=== PATIENT | male | born 1995 | race Caucasian/White ===

== ENCOUNTER 2017-10-05 21:56 | Emergency (ER) | payer OTHER, SELFPAY ==
[2017-10-05 21:57] VITALS: BP 136/75; PULSE 74; RESP 16; TEMP 36.4; O2SAT 99; BMI 32.3
--- NOTE | 2017-10-05 22:33 | RAD_ITS ---
STUDY: X-RAY - LEFT KNEE REASON FOR EXAM: Male, 21 years old. Twisting injury of the knee. TECHNIQUE: 4 view(s) of the knee. COMPARISON: None. FINDINGS: Normal visualized distal femur. Bone island of the lateral tibia. Otherwise normal tibia and fibula. Normal proximal tibiofibular articulation. Normal patella. Negative for fracture. Normal medial femorotibial compartment. Normal lateral femorotibial compartment. Normal patellofemoral articulation. There is no demonstrated joint effusion. The soft tissue structures are unremarkable. RAD/Knee 4 or More Views IMPRESSION: Normal x-ray examination of the knee. Electronically Signed: Valentina Robert MD at 23:15 EDT , Service support ,
[2017-10-05] MEDS: Naproxen 500 MG Tablet PO (22:40)
--- NOTE | 2017-10-05 23:04 | ED.VISSUMM ---
- ER Visit Summary Date of Service: 10/05/17 Chief Complaint: Left knee pain History of Present Illness: The patient is a [address] Harper. He reports that yesterday he was on a trailer and fell and twisted his left knee awkwardly and hit it on the trailer. He reports he is an aching pain Zeta 10 with walking and 6 out of 10 at rest. He denies any other injuries or complaints. No numbness distally. Physical Examination: Vitals: Stable. Afebrile. Neck: No vertebral tenderness. Full ROM without difficulty. Cleared by NEXUS criteria. Back: No vertebral tenderness. General: A&O x 3. NAD. Cardiovascular exam: Regular rate and rhythm, no murmur, rub or gallop. Respiratory exam: Chest nontender. No crepitus. Clear to auscultation bilaterally. No wheezes or stridor. Abdominal exam: Soft, nontender, nondistended, normal bowel sounds. No pain in RUQ or LUQ specifically. No peritoneal signs. Extremity: Contusion on the medial side of his left knee that is mildly tender to palpation. No pain with range of motion. No pain or ligamentous instability with anterior/posterior drawer or medial/lateral stress. Negative Matteo bilaterally. Test Results: X-ray shows no acute disease. Emergency Department Course and Treatment: Patient was treated with naproxen. He refused crutches. Treatment Plan: Patient will be discharged on naproxen. Instructed to follow-up with Dr. Harper in 1 week if not improving. Return to the emergency department for any worsening symptoms. Disposition: To home in improved and stable condition. Impression: 1. Left knee contusion. This note was generated with [employer] dictation software. It may contain incorrect words, spelling, and punctuation that were not noted in review of the chart prior to signing ED Disposition - Plan for ED Patient: Chief Complaint: Lower Extremity Injury Instructions: ED Knee Pain UKO Prescriptions: Naproxen [Naprosyn] 500 mg PO BID #14 tablet Referrals: Jimmy Harper DO [Primary Care Provider] - 1 Week if not improving
== END 2017-10-05 23:10 | disposition home or self-care (01) ==
LOC: ED 22:41
PROVIDERS: Emergency Provider Emergency Medicine; Family Provider Pediatrics; PCP Pediatrics
DX: S80.02XA Contusion of left knee, initial encounter (principal); W01.10XA Fall on same level from slipping, tripping and stumbling with subsequent striking against unspecified object, initial encounter; Y93.9 Activity, unspecified; Y92.9 Unspecified place or not applicable; Y99.9 Unspecified external cause status; E03.9 Hypothyroidism, unspecified; Z79.899 Other long term (current) drug therapy
CPT/HCPCS: 73564; 99283

== ENCOUNTER 2019-07-21 17:50 | Emergency (ER) | payer OTHER, SELFPAY ==
[2019-07-21 17:51] VITALS: BP 137/77; PULSE 86; RESP 17; TEMP 36.8; O2SAT 98; BMI 36.8
--- NOTE | 2019-07-21 18:24 | CT_ITS ---
STUDY: CT ABDOMEN AND PELVIS WITHOUT CONTRAST REASON FOR EXAM: Male, 23 years old. LLQ PAIN TODAY RADIATION DOSAGE (If Supplied By Facility): CTDIvol = ( 16.18 ) mGy, DLP = ( 840.55 ) mGycm TECHNIQUE: Transaxial images were obtained from the dome of the diaphragm to the symphysis pubis without oral contrast, and without intravenous contrast. Sagittal and coronal images were reconstructed. Individualized dose optimization techniques were used for this CT. COMPARISON: None. FINDINGS: The visualized lung bases are unremarkable. The visualized portions of the heart are within normal limits. Normal liver. Normal gallbladder and extrahepatic biliary system. Normal spleen. Normal pancreas. Normal bilateral adrenal glands. There are several nonobstructing right renal calculi in the 1 to 2 mm range. There is slight prominence of the left pelvic calyceal system. There is an obstructing calculus in the mid left ureter measuring 2.6 mm. Normal visualized stomach. Normal small intestine. Normal colon. The appendix is visualized and appears normal. Normal abdominal aorta. Normal inferior vena cava. Normal retroperitoneum. Normal urinary bladder. There is a small umbilical hernia containing fat. Normal osseous structures. CT/Abdomen/Pelvis without Cont IMPRESSION: 1. Obstructing calculus in the mid left ureter measuring 2.6 mm, with mild prominence of the left pelvic calyceal system. 2. Nonobstructing calculi seen in the right kidney in the 1 to 2 mm range. 3. Small fat-containing umbilical hernia. Electronically Signed: Mynor Ulloa MD at 19:13 EDT , Service support ,
--- NOTE | 2019-07-21 18:24 | ED.VIS.GEN ---
History of Present Illness Chief Complaint: Abd Pain Narrative: Patient presents with abdominal pain, it started about 2 hours ago, it was left lower quadrant sharp and stabbing he does not have any flank pain with this. He has no radiation to his testicles, he has no dysuria or hematuria. He denies any upper abdominal pain, he had some nausea which is also resolved. There is no history of fever chills, there is no diarrhea constipation or recent travel. Past Medical History - Allergies and Home Meds Allergies/Adverse Reactions: Allergies No Known Allergies Allergy (Verified 07/21/19 17:50) Primary Care Physician: Tamir Hernandez MD [Primary Care Provider] - Past Medical History: - - Hypothyroidism Smoking Status: Never smoker Review of Systems All systems negative except as indicated Cardiovascular: Denies: Chest pain Respiratory: Denies: Dyspnea, Cough, Sputum Gastrointestinal: Reports: Abdominal pain, Nausea. Denies: Vomiting, Diarrhea, Constipation Genitourinary: Denies: Dysuria, Hematuria Musculoskeletal: Denies: Back pain Skin: Denies: Rash Neurological: Denies: Headache, Weakness Endocrine: Denies: Polyuria Hematologic: Denies: Easy bruising Physical Exam Vital Signs/Narrative: Vital Signs Temp Pulse Resp BP Pulse Ox 07/21/19 17:51 98.3 F 86 17 137/77 H 98 General: Well nourished, Well developed Head: - - Right face and scalp deformity Eyes: Negative for: Perrl ENT: Moist mucous membranes Cardiovascular: Regular rate, Regular rhythm Respiratory: No distress Abdomen: Soft, - - There is left lower abdominal pain without any guarding or rebound. There is no CVA tenderness. There is no right lower quadrant pain no pain at McBurney's no upper abdominal pain. Overall a benign abdomen Back: Nontender. Negative for: CVA tenderness Extremities: Nontender, No edema Skin: Normal color Neurological: Alert, Oriented x3 Psychological: Normal affect Diagnostic/Tx/Re-eval - Medical Decision Making Patient is found to have a small 2.5 mm stone, there is no signs of infection, I will discharge with analgesia and follow-up. ED Disposition - Plan for ED Patient: Disposition: Home or Assisted Living Instructions: Understanding Kidney Stones, Kidney Stones: Your Evaluation Prescriptions: Oxycodone HCl/Acetaminophen [Percocet 5/325] 1 tablet PO Q4H PRN PRN 3 Days #12 tablet PRN Reason: Pain Transmission Status: Received by [id number] Ondansetron [Zofran Odt] 4 mg PO Q8H PRN PRN #12 tab PRN Reason: Nausea Transmission Status: Pending to [id number] Referrals: Al Alvarez MD [STAFF PHYSICIAN] - 3-5 Days
[2019-07-21] MEDS: Ondansetron 4 MG/2 ML Vial IV (18:39)
[2019-07-21] MEDS: Morphine 4 MG/ML Syringe IV (18:40)
[2019-07-21 18:48] LABS: Absolute Lymphocyte Count 1.81 X10^3/uL (0.83-4.51); Absolute Neutrophil Count 14.3 X10^3/uL (2.0-7.7); Basophil# 0.06 X10^3/uL; Basophil% 0.3 % (0-1); Eosinophil# 0.03 X10^3/uL; Eosinophils% 0.2 % (0-5); Hematocrit 43.4 % (40-54); Hemoglobin 14.4 g/dL (13.0-16.5); Lymphocyte # 1.81 X10^3/ul (4.0); Lymphocyte % 10.4 % (19-41); Mean Corp Hgb Conc 33.2 g/dL (32-36); Mean Corpuscular Volume 84.3 fL (80-94); Monocyte# 1.13 X10^3/uL; Monocyte% 6.5 % (0-10); NRBC Flagged by Analyzer 0 % (0-5); Neutrophil # 14.32 X10^3/uL (2.7-7.7); Platelet Count 282 K/mm3 (150-450); RBC Distribution Width CV 12.5 % (11.6-14.6); RBC Distribution Width SD 38.3 fl (35.1-43.9); Red Blood Count 5.15 M/mm3 (4.6-6.2); White Blood Count 17.5 K/mm3 (4.4-11.0)
[2019-07-21 18:50] LABS: Bacteria 0 SEEN /hpf (None Seen); Mucous, Urine 0 SEEN /hpf (<or=2+); White Blood Cells 0 SEEN /hpf (0-5)
[2019-07-21 18:56] LABS: AST(SGOT) 21 U/L (15-37); Alanine Aminotransfer ALT/SGPT 29 U/L (16-61); Albumin, Serum 4.3 g/dL (3.2-5.0); Alkaline Phosphatase 110 U/L (45-117); Anion Gap 7 (5-15); BUN 12 mg/dL (7-18); BUN/Creat Ratio 12.4 RATIO (10-20); Chloride 107 mmol/L (98-107); Creatinine, Serum 0.97 mg/dL (0.70-1.30); EST Glomerular Filtration Rate 102 mL/min (>60); Est Glom Filt Rate - Afr Amer 124 mL/min (>60); Estimated Creatinine Clearance 103.91 ml/min; Globulin 4.2 g/dL (2.2-4.2); Glucose 95 mg/dL (74-106); Lipase 73 U/L (73-393); Potassium 3.8 mmol/L (3.5-5.1); Protein, Total 8.5 g/dL (6.4-8.2); Sodium Level 140 mmol/L (136-145)
[2019-07-21 18:56] LABS: Color, Urine Yellow (Yellow); Glucose, Dipstick Normal (Normal); Ketone-Dipstick 5 mg/dl (Negative); Leukocyte Esterase-Dipstick Negative /ul (Negative); Nitrite-Dipstick Negative (Negative); Occult Blood-Urine 150 /ul (Negative); Protein-Dipstick Negative (Negative); Urine Bilirubin Dipstick Negative (Negative); Urine Clarity Sl. Cloudy (Clear); Urine Urobilinogen Normal (Normal)
[2019-07-21 19:07] LABS: Amorphous Sediment 1+ URATE; Red Blood Cells-Urine 5-10 SEEN /hpf (0-5); Squamous Epithelial Cells - UA 0-5 SEEN /hpf (0-5)
[2019-07-21 20:20] VITALS: BP 132/80; PULSE 77; RESP 16; O2SAT 98
== END 2019-07-21 20:26 | disposition home or self-care (01) ==
PROVIDERS: Emergency Provider Emergency Medicine; PCP Family Medicine
DX: N20.0 Calculus of kidney (principal); E03.9 Hypothyroidism, unspecified; Z79.899 Other long term (current) drug therapy
CPT/HCPCS: 74176; 80053; 81001; 83690; 85025; 96374; 96375; 99283; A4216; J2405

== ENCOUNTER → 2020-04-13 17:07 | Outpatient (CLI) | payer OTHER, SELFPAY | PROVIDERS: PCP Family Medicine; Referring Provider Family Medicine; Visit Provider Family Medicine | DX: Z20.822 Contact with and (suspected) exposure to COVID-19 (principal) | CPT/HCPCS: 87635; C9803; U0005; U0003 ==

== ENCOUNTER 2021-09-15 16:15 | Emergency (ER) | payer OTHER, SELFPAY ==
[2021-09-15 16:15] VITALS: BP 131/80; PULSE 72; RESP 16; TEMP 36.6; O2SAT 99
[2021-09-15 16:16] VITALS: BP 131/80; PULSE 72; RESP 16; TEMP 36.6; O2SAT 99; BMI 37.3
--- NOTE | 2021-09-15 16:50 | ED.VIS.BACK ---
HPI <CODY Altman - Last Filed: 09/15/21 18:06> History of Present Illness Chief Complaint: Back Narrative Narrative: 25-year-old male presents with 3-day history of back pain. He has pain in the right lower back that radiates down the posterior thigh to the knee. It is worse with standing or bending and he occasionally gets numbness and tingling into the entire foot. Today when he stepped out of his vehicle he was in the buckled and the pain was worse. He is able to ambulate. There was no trauma. Denies weakness, saddle anesthesia, bladder or bowel incontinence. No fever or IVDU. No history of similar symptoms. 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 levothyroxine 125 mcg tablet 62.5 mcg PO DAILY 10/05/17 [History Last Taken Unknown] ondansetron 4 mg disintegrating tablet 4 mg PO Q8H PRN PRN Nausea #12 tabs 07/21/19 [Rx Last Taken Unknown] cyclobenzaprine 10 mg tablet 10 mg PO TID PRN Muscle Spasm #20 TABLETS 09/15/21 [Rx Last Taken Unknown] ibuprofen 600 mg tablet 600 mg PO Q6H PRN PRN back pain #20 TABLETS 09/15/21 [Rx Last Taken Unknown] Allergy/AdvReac Type Severity Reaction Status Date / Time No Known Allergies Allergy Verified 07/21/19 17:50 Social History Smoking Status: Never smoker ROS <CODY Altman - Last Filed: 09/15/21 18:06> ROS ED ROS Narrative Constitutional: Negative for fever, chills, malaise. Eyes: Negative for visual change. ENT: Negative for sore throat, ear pain, rhinorrhea. CVS: Negative for palpitations, chest pain, syncope. Respiratory: Negative for shortness of breath, cough, orthopnea. GI: Negative for abdominal pain, nausea, vomiting, diarrhea, constipation, melena, hematochezia. : Negative for dysuria, hematuria or frequency. Neuro: Negative for headache, motor/sensory dysfunction. Skin: Negative for rash, abscess, or wound. Musc: Positive for back pain. Negative for joint pain, swelling, trauma. Heme: Negative for easy bruising, bleeding, lymphadenopathy. EXAM <CODY Altman - Last Filed: 09/15/21 18:06> Physical Exam Narrative Exam Narrative: CONST: Patient sitting in no acute distress. EYES: Normal inspection. NECK: Normal inspection. RESP: No respiratory distress, CTAB. CVS: Regular rate and rhythm, no murmur, no gallop. ABD: Soft and nontender, no guarding or rebound, nondistended. Back: Normal inspection, no midline spinal tenderness, no step-offs. TTP over right lumbar paraspinals SKIN: Color normal, no rash, warm, dry, intact. EXTREMITIES: Normal appearance, no pedal edema. 5/5 bilateral hip flexion, knee flexion/extension, and DF/PF. 2+ PT pulses. Normal gait, able to walk on heels and toes, NEURO: Oriented x4. PSYCH: Normal affect. Const Vital Signs: 09/15/21 16:16 09/15/21 16:15 Temperature 97.9 F 97.9 F Temperature Source Temporal Temporal Pulse Rate 72 72 Respiratory Rate 16 16 Blood Pressure 131/80 H 131/80 H Blood Pressure Mean 97 97 Pulse Ox 99 99 Oxygen Delivery Method Room Air Room Air <Dr. Dale Azar DO - Last Filed: 09/15/21 18:19> Physical Exam Const Vital Signs: 09/15/21 16:16 09/15/21 16:15 Temperature 97.9 F 97.9 F Temperature Source Temporal Temporal Pulse Rate 72 72 Respiratory Rate 16 16 Blood Pressure 131/80 H 131/80 H Blood Pressure Mean 97 97 Pulse Ox 99 99 Oxygen Delivery Method Room Air Room Air MDM <CODY Altman - Last Filed: 09/15/21 18:06> [facility] Narrative Medical decision making narrative: Patient presents with right-sided low back pain radiating down his posterior right leg to the knee that sound consistent with sciatica. He appears well nontoxic. Afebrile and vital signs within normal limits. Normal inspection of back with no midline spinal tenderness or step-offs. He does have tenderness over the right lumbar paraspinals. Negative straight leg raise bilaterally. Lower extremity MSPs and reflexes intact. Normal gait, able to walk on heels and toes. No red flag symptoms concerning for cauda equina syndrome or epidural abscess. There is no indication for emergent imaging. Patient will be treated conservatively with NSAIDs, flexeril, and recommended activity modification. I advised he follow-up with his PCP as if not improving he may need PT. He was discharged in stable condition 1. Low back pain <Dr. Dale Azar DO - Last Filed: 09/15/21 18:19> [facility] Narrative Medical decision making narrative: Patient presents with right-sided low back pain radiating down his posterior right leg to the knee that sound consistent with sciatica. He appears well nontoxic. Afebrile and vital signs within normal limits. Normal inspection of back with no midline spinal tenderness or step-offs. He does have tenderness over the right lumbar paraspinals. Negative straight leg raise bilaterally. Lower extremity MSPs and reflexes intact. Normal gait, able to walk on heels and toes. No red flag symptoms concerning for cauda equina syndrome or epidural abscess. There is no indication for emergent imaging. Patient will be treated conservatively with NSAIDs, flexeril, and recommended activity modification. I advised he follow-up with his PCP as if not improving he may need PT. He was discharged in stable condition 1. Low back pain I performed a history and physical examination of the patient and discussed management plan with the physician sales assistant displays. I reviewed the physician sales assistant displays's note and agree with the documented findings and plan of care. Patient with atraumatic low back pain on the right. Is worse with movement and radiates down to the level of the knee. He does do heavy lifting at work but does not recall a specific incident. He does not do formal exercise or stretching. This is most likely biomechanical but I did tell him that if things are not improving that he may need to follow-up for further evaluation including physical therapy or MRI. He does not have any red flag history. Dale Azra DO, MS Discharge Plan Triage Chief Complaint: Back ED Midlevel Provider: Amanda Turner ED Provider: Dale Azar Dx/Rx/DC Orders Instructions: ED Back Care Tips Prescriptions: New ibuprofen 600 mg tablet 600 mg PO Q6H PRN PRN (Reason: back pain) Qty: 20 0RF cyclobenzaprine 10 mg tablet 10 mg PO TID PRN (Reason: Muscle Spasm) Qty: 20 0RF No Action levothyroxine 125 MCG tablet 62.5 mcg PO DAILY ondansetron 4 MG tablet 4 mg PO Q8H PRN PRN (Reason: Nausea) Qty: 12 0RF Primary Care Provider: Tamir Hernandez Referrals: Taimr Hernandez MD [Primary Care Provider] - Activity Restrictions/Additional Instructions: Take ibuprofen and muscle relaxers as needed. Stretch. Follow-up with your primary care doctor as you may need physical therapy. Disposition Disposition: Home, Self Care
[2021-09-15] MEDS: Ketorolac 15 MG/ML Vial IM (17:08)
== END 2021-09-15 18:16 | disposition home or self-care (01) ==
PROVIDERS: Emergency Provider Emergency Medicine; PCP Family Medicine; Visit Provider Emergency Medicine
DX: M54.50 Low back pain, unspecified (principal); M79.661 Pain in right lower leg; E03.9 Hypothyroidism, unspecified
CPT/HCPCS: 96372; 96374; 99282

== ENCOUNTER 2023-12-18 19:09 | Emergency (ER) | payer OTHER, SELFPAY ==
[2023-12-18 19:09] VITALS: BP 145/90; PULSE 73; RESP 16; TEMP 35.8; O2SAT 98; BMI 36.6
--- NOTE | 2023-12-18 21:43 | EX.ED.UPPERE ---
HPI History of Present Illness HPI Narrative: Patient presents with a laceration to his left thumb that occurred today. Patient is right-hand dominant. Patient was using a knife to cut food for dinner. Patient states the knife slipped and he cut his left thumb. Patient denies any paresthesias or weakness. Patient states his last tetanus was between 5 and 10 years ago. Patient describes his pain as aching, burning, and stabbing. Patient states this pain is worse with movement and better with rest. Chief Complaint: Laceration Informant: patient Occured/Mechanism Comment: Accidentally cut with a knife Onset/Context/Timing Onset: Today Context: Sudden Onset Timing: Continuous Quality of Pain: Aching, Burning and Stabbing Location: Left thumb Worsened by: Movement Relieved by: Rest Associated Symptoms Associated Symptoms: Negative for Parasthesia, Weakness or Loss of Funtion Narrative Tetanus Immunization: 5-10 years [facility] Medical History (Updated 12/18/23 @ 23:[address] Abdulkadir Abad DO) Rhabdoid sarcoma Hypothyroid Home Medications ?Medication ?Instructions ?Recorded ?Last Taken ?Type levothyroxine 125 mcg tablet 62.5 mcg PO DAILY 10/05/17 Unknown History Allergy/AdvReac Type Severity Reaction Status Date / Time No Known Allergies Allergy Verified 12/18/23 21:09 Surgical History (Updated 12/18/23 @ 23:[address] Abdulkadir Abad DO) History of facial surgery Social History household members: spouse Smoking Status: Never smoker ROS ROS ED Constitutional Constitutional ED: Denies chills or fever(s) Eyes Eyes: Denies blurry vision or change in vision ENT ENT ED: Denies rhinorrhea or sore throat Cardiovascular Cardiovascular: Denies chest pain or palpitations Respiratory/Chest Respiratory/Chest: Denies cough or dyspnea Gastrointestinal Gastrointestinal: Denies nausea or vomiting Genitourinary Genitourinary ED: Denies dysuria or hematuria Musculoskeletal Musculoskeletal: Denies back pain or neck pain Integumentary Denies abscess or rash Neurologic Neurologic: Denies headache(s) or weakness Allergic/Immunologic Allergic/Immunologic ED: Denies mouth swelling or urticaria EXAM Physical Exam Const Vital Signs: 12/18/23 19:09 Temperature 96.5 F L Temperature Source Temporal Pulse Rate 73 Respiratory Rate 16 Blood Pressure 145/90 H Blood Pressure Mean 108 Pulse Ox 98 Oxygen Delivery Method Room Air Positive well nourished and well developed General Appearance ED: well developed and NAD HEENT Reports moist mucous membranes Neck full ROM Extremity Extremity Narrative: There is a 3.5 cm full-thickness curvilinear laceration over the ulnar aspect of the distal phalanx of the left thumb. There is mild gapping of the wound margins. There is no bony crepitance or step-off. There is no deformity noted. Strength is 5/5 in flexion and extension of the IP and MP joints of the left thumb. Sensation was intact to light touch in all digits. Capillary refill was less than 2 seconds in all digits. Neuro oriented x3, CN's II-XII intact bilaterally, moves all extremities, no focal motor deficits and no sensory deficits noted Sensorium / Orientation: alert Motor Exam: strength 5/5 throughout Procedures Lacerations Left thumb: Length: 3.5 cm Depth: Skin Shape: Linear (U-shaped) Prep: Sterile Conditions and Chlorhexadine Laceration repair: Digital block, Irrigated, Lidocaine and Skin sutures Irrigated (ml): 60 Number of Sutures/Parris: 6 Suture Information: Ethilon, Simple and 4-0 Discharge Plan Triage Chief Complaint: Laceration ED Provider: Abdulkadir Abad Dx/Rx/DC Orders Clinical Impression: Laceration of left thumb without foreign body without damage to nail, Hypothyroidism Instructions: ED Laceration, Hand: All Closures Prescriptions: No Action levothyroxine 125 MCG tablet 62.5 mcg PO DAILY Primary Care Provider: Tamir Hernandez Referrals: Tamir Hernandez MD [Primary Care Provider] - 5 Days for suture removal Print Language: Bhutanese Disposition Disposition: Home, Self Care
[2023-12-18] MEDS: Lidocaine 1% (20 ml mdv) 20 ML Vial INFILT (21:52)
[2023-12-18 23:09] VITALS: BP 113/65; PULSE 75; RESP 16; O2SAT 99
== END 2023-12-19 00:02 | disposition home or self-care (01) ==
PROVIDERS: Emergency Provider Emergency Medicine; PCP Family Medicine; Visit Provider Emergency Medicine
DX: S61.012A Laceration without foreign body of left thumb without damage to nail, initial encounter (principal); W26.0XXA Contact with knife, initial encounter; Y93.G1 Activity, food preparation and clean up; Y99.8 Other external cause status; E03.9 Hypothyroidism, unspecified; Z79.890 Hormone replacement therapy
CPT/HCPCS: 12002; 99283